=== PATIENT | female | born 1945 | race Caucasian/White ===

== ENCOUNTER 2017-02-08 16:27 | Emergency (ER) | payer MEDICARE ==
--- NOTE | 2017-02-08 18:54 | ER NURSING DOCUMENTATION ---
Nurse's Notes [facility] Name:Romelia Valero Age:71 yrs Sex:Female :1945 Arrival Date:02/08/2017 Time:16:27 Bed6 Private MD:La Upton Diagnosis:Tendonitis;Strain Presentation: 02/08 16:30 Presenting complaint: Patient states: Injured her right bicep one week ago. Saw her MD rs who did x-rays, etc. Dx with strain. Today has a pocket of fluid underneath the skin on her right bicep. No other changes, no re-injury. Takes ASA and Plavix. Transition of care: patient was not received from another setting of care. 16:30 Acuity: KENNETH 3 rs 16:30 Method Of Arrival: Private Vehicle rs Triage Assessment: 16:54 General: Appears in no apparent distress, comfortable, well developed, well nourished, rs well groomed, Behavior is cooperative, pleasant. 17:19 Pain: Complains of pain in right bicep Pain does not radiate. Pain currently is 3 out rs of 10 on a pain scale. Quality of pain is described as aching, Pain began one week ago. Neuro: No deficits noted. Level of Consciousness is awake, alert, Oriented to person, place, time, event. Cardiovascular: No deficits noted. Capillary refill < 3 seconds Pulses are 3+ in right radial artery. Respiratory: No deficits noted. Airway is patent Respiratory effort is even, unlabored, Respiratory pattern is regular, symmetrical, Breath sounds are clear bilaterally. Derm: Skin is pink, warm & dry. Area of approx 4 x 4 cm on anterior aspect of right bicep is swollen and has palpable fluid. The area is well defined and nontender. Musculoskeletal: No deficits noted. Circulation, motion, and sensation intact Capillary refill Range of motion intact in all extremities. Denies weakness in right bicep. Injury Description: Was turning a door nob last week and had a sudden severe pain in her right bicep. Historical: - Allergies: IODINEIODINE CONTAINING; PENICILLINS; SULFA (SULFONAMIDES); Tramadol-Acetaminophen; Elavil; SHELLFISH; - Home Meds: 1. Coreg Oral 2. Simvastatin Oral 3. Plavix Oral 4. Pepcid Oral 5. Aspirin Oral 6. OxyContin Oral 7. oxygen at noc 8. nitroglycerin 0.3 mg sublingual subl 1 tab every 5 minutes for Angina - PMHx: MYOCARDIAL INFARCTION; RENAL DISEASE; Dyspnea (December 25, 2015); COPD; CAD; Neuropathy; hyperlipidemia; Dehydration (June 02, 2015); Hyperkalemia (June 02, 2015); Hypomagnesemia (June 02, 2015); - PSHx: HYSTERECTOMY; right kidney; spinal fusion; wrist plate; lumbar spinal surgery; - Tetanus: < 10 years. - Ebola Screening: : Patient negative for fever greater than or equal to 101.5 degrees Fahrenheit, and additional compatible Ebola Virus Disease symptoms. Patient denies exposure to infectious person. Patient denies travel to an Ebola-affected area in the 21 days before illness onset. No symptoms or risks identified at this time. . - Immunization history: Unable to Obtain. - Social history: Smoking status: unknown if patient ever smoked tobacco. Patient/guardian denies using alcohol. Screenin:45 Infectious Disease Risk None. Abuse screen: Denies threats or abuse. Nutritional rs screening: No deficits noted. Vital Signs: 16:40 BP 108 / 43; Pulse 78; Resp 20; Temp 97.7; Pulse Ox 91% on R/A; Pain 2/10; rs ED Course: 16:29 Patient arrived in ED. lm3 16:30 La Upton DO is Private Physician. lm3 16:30 Shayy Brewer, HARRIS is Primary Nurse. rs 16:40 Door closed. Noise minimized. Verbal reassurance given. rs 16:45 Notified ED Physician of patient's arrival and chief complaint. Dr. Ibarra notified. Bed rs in low position Call Light in Reach Side rails up x1. 16:47 Joe Ibarra MD is Attending Physician. 16:49 Triage completed. rs 17:07 Adán Pack MD is Referral Physician. jm 17:10 Moses wrap to right bicep. ice pack. rs Administered Medications: No medications were administered Outcome: 17:07 Discharge ordered by . 17:15 Discharged to home ambulatory. rs 17:15 Condition: improved 17:15 Discharge instructions given to patient, Instructed on discharge instructions, Demonstrated understanding of instructions. 18:54 Patient left the ED. rs 02/09 10:20 Discharge F/U Call: Spoke with: patient. other: Name: pt states her arm is still sore st and bruised but seems to be less swollen. She states she is doing well. Signatures: Janae Wilkins, HARRIS RN st Shayy Brewer RN RN rs Meyer, John, MD MD jm McKibbon-Moore, Lisa Shavonne
--- NOTE | 2017-02-08 18:54 | ER PHYSICIAN DOCUMENTATION ---
Physician Documentation [facility] Name:Romelia Valero Age:71 yrs Sex:Female :1945 Arrival Date:02/08/2017 Time:16:27 Bed6 Private MD:La Upton ED, John Disposition: 02/08/17 17:07 Discharged to Home/Self Care. Impression: Tendonitis, Strain. - Condition is Good. - Discharge Instructions: MARIO WRAP, STRAINED MUSCLE Extremity - MUSCLE STRAIN, Extremity. - Medical Reconciliation form form. - Follow up: Adán Pack MD; When: 4- 6 days; Reason: Continuance of care. - Problem is new. - Symptoms have improved. HPI: 02/08 17:13 This 71 yrs old Female presents to ER via Private Vehicle with complaints of jm Arm Pain - rt bicep tendonitis. 17:13 The patient or guardian complains of injury, pain, swelling. The complaints affect the jm right bicep. Context:. Onset: The symptom(s)/episode began/occurred 1 week(s) ago, and became worse yesterday. Treatment prior to arrival includes: PT. 71 yo F who was trying to twist open a door and heard a pop in her R biceps area. She was evaluated by Dr. Upton who did and xray and felt she had biceps tendonitis. Pt was doing Physical therapy throughout the week and today woke up with swelling and pain around the biceps area. Pt is on plavix and ASA. . Historical: - Allergies: IODINEIODINE CONTAINING; PENICILLINS; SULFA (SULFONAMIDES); Tramadol-Acetaminophen; Elavil; SHELLFISH; - Home Meds: 1. Coreg Oral 2. Simvastatin Oral 3. Plavix Oral 4. Pepcid Oral 5. Aspirin Oral 6. OxyContin Oral 7. oxygen at noc 8. nitroglycerin 0.3 mg sublingual subl 1 tab every 5 minutes for Angina - PMHx: MYOCARDIAL INFARCTION; RENAL DISEASE; Dyspnea (December 25, 2015); COPD; CAD; Neuropathy; hyperlipidemia; Dehydration (June 02, 2015); Hyperkalemia (June 02, 2015); Hypomagnesemia (June 02, 2015); - PSHx: HYSTERECTOMY; right kidney; spinal fusion; wrist plate; lumbar spinal surgery; - Tetanus: < 10 years. - Ebola Screening: : Patient negative for fever greater than or equal to 101.5 degrees Fahrenheit, and additional compatible Ebola Virus Disease symptoms. Patient denies exposure to infectious person. Patient denies travel to an Ebola-affected area in the 21 days before illness onset. No symptoms or risks identified at this time. . - Immunization history: Unable to Obtain. - Social history: Smoking status: unknown if patient ever smoked tobacco. Patient/guardian denies using alcohol. ROS: 17:15 Constitutional: Negative for fever. jm 17:15 MS/extremity: Positive for ecchymosis, swelling, tenderness, Negative for decreased range of motion. 17:15 Skin: Positive for ecchymosis, swelling. Exam: 17:16 Constitutional: The patient appears alert, awake, comfortable. jm 17:16 Musculoskeletal/extremity: Extremities: grossly normal except: noted in the right bicep: ecchymosis, pain, swelling, 4x5cm area of ecchymosis noted to the R biceps. Full ROM noted, but pt is weak 2/2 pain, which she's had all week. , ROM: full active range of motion, full passive range of motion, Pulses: are normal with no appreciated deficits. Vital Signs: 16:40 BP 108 / 43; Pulse 78; Resp 20; Temp 97.7; Pulse Ox 91% on R/A; Pain 2/10; rs MDM: 16:47 Patient medically screened. 17:17 Differential diagnosis: tendonitis, w small hematoma. Data reviewed: vital signs, nurses notes, old medical records, and as a result, I will discharge patient. Counseling: I had a detailed discussion with the patient and/or guardian regarding: the historical points, exam findings, and any diagnostic results supporting the discharge/admit diagnosis, the need for outpatient follow up, with the patient's primary care provider, a orthopedic surgeon. ED course: Pt w small hematoma on a healing biceps. Will place MARIO wrap and pt can f/u w PCP or Dr. Pack. . Dispensed Medications: No medications were administered Signatures: Shayy Brewer RN RN rs Joe Ibarra MD MD jm
== END 2017-02-08 18:54 | disposition home or self-care (01) ==
LOC: ER 16:27
DX: M75.21 Bicipital tendinitis, right shoulder (principal); S46.211A Strain of muscle, fascia and tendon of other parts of biceps, right arm, initial encounter; X50.0XXA Overexertion from strenuous movement or load, initial encounter; I25.10 Atherosclerotic heart disease of native coronary artery without angina pectoris; I25.2 Old myocardial infarction; Z79.02 Long term (current) use of antithrombotics/antiplatelets; Z79.82 Long term (current) use of aspirin; Z79.899 Other long term (current) drug therapy
CPT/HCPCS: 99283